=== PATIENT | male | born 1940 | race Two or more races ===

== ENCOUNTER 2017-10-08 09:58 | Inpatient (IN) | payer MEDICAID ==
[~2017-10-08] VITALS: Ht 190.5 cm; Wt 69.6 kg
[2017-10-08 10:50] LABS: Basophils # (auto) 0 uL; Basophils % (auto) 0.8 % (0.0-2.0); Eosinophils # (auto) 0.1 uL; Eosinophils % (auto) 1.7 % (0.0-7.0); Hematocrit 35.3 % (41.0-53.0); Hemoglobin 11.5 g/dL (13.5-17.5); Lymphocytes # (auto) 0.5 uL; Lymphocytes % (auto) 10.7 % (10.0-50.0); Mean Corpuscular Hgb Conc. 32.7 g/dL (32.0-36.0); Mean Corpuscular Volume 97.9 fL (80.0-100.0); Monocytes # (auto) 0.6 uL; Monocytes % (auto) 13.2 % (0.0-12.0); Neutrophils # (auto) 3.5 uL; Neutrophils % (auto) 73.6 % (37.0-80.0); Nucleated Red Blood Cells % 0.1 %; Platelet Count (auto) 145 10^3/uL (140-450); Red Cell Distribution Width 17.1 % (11.8-14.3); White Blood Cell 4.7 10^3/uL (4.4-10.8)
[2017-10-08 11:06] LABS: Calcium 9.1 mg/dL (8.5-10.1); Magnesium 2.5 mg/dL (1.6-2.6); Potassium 4.1 mmol/L (3.5-5.1)
[2017-10-08 11:08] LABS: BUN/Creatinine Ratio 7.1
[2017-10-08 11:13] LABS: Bilirubin, Total 1.6 mg/dL (0.2-1.0); Total Protein 7.5 g/dL (6.4-8.2)
[2017-10-08] MEDS ORDERED: MORPHINE SULFATE 8mg/ml INJ SDV IV PRN ×2 (11:15)
[2017-10-08] MEDS ORDERED: LEVOFLOXACIN 500MG 100 ML IV ONE (11:15)
[2017-10-08] MEDS ORDERED: NITROGLYCERIN 0.4 MG SL TAB SL PRN (11:15)
[2017-10-08] MEDS ORDERED: ALBUTEROL SULF 2.5 MG/0.5ML(0.5%) NEB SOLN NEB PRN (11:15)
[2017-10-08] MEDS ORDERED: ACETAMINOPHEN 500 MG TAB PO PRN (11:15)
[2017-10-08] MEDS ORDERED: LACTULOSE 20Gm/30ML SOLN PO PRN (11:15)
[2017-10-08] MEDS ORDERED: PROMETHAZINE HCL 25 MG/ML 1ML IV PRN (11:15)
[2017-10-08] MEDS ORDERED: TEMAZEPAM 15 MG CAP PO PRN (11:15)
[2017-10-08] MEDS: ENOXAPARIN SOD 30 MG/0.3 ML SYRINGE SC SCH (11:45)
[2017-10-08] MEDS: PANTOPRAZOLE 40 MG TAB PO SCH (11:45)
[2017-10-08] MEDS: ALBUTEROL SULF 2.5 MG/0.5ML(0.5%) NEB SOLN NEB SCH ×2 (12:30→18:55)
[2017-10-08] MEDS: IPRATROPIUM BROM 0.5 MG/2.5ML INH SOL NEB SCH ×2 (12:30→18:55)
[2017-10-08] MEDS: cefTRIAXone 1GM/10ml IVPUSH 10 ML IV SCH (15:04)
[2017-10-08] MEDS: SODIUM CHLOR 0.9% PF (SALINE LOCK) 10ML VIAL/SYR IV SCH ×2 (15:04→21:25)
[2017-10-08] MEDS: AZITHROMYCIN 500MG/ 250ML 250 ML IV SCH (15:05)
[2017-10-08] MEDS: HYDROcodone-ACET 5/325MG TAB PO PRN (19:17)
[2017-10-08] MEDS: LORazepam 0.5 MG TAB PO PRN (21:24)
[2017-10-08 22:57] VITALS: BP 101/63
[2017-10-09] MEDS: IPRATROPIUM BROM 0.5 MG/2.5ML INH SOL NEB SCH ×4 (00:55→19:27)
[2017-10-09] MEDS: ALBUTEROL SULF 2.5 MG/0.5ML(0.5%) NEB SOLN NEB SCH ×4 (00:55→19:27)
[2017-10-09 05:41] LABS: Basophils # (auto) 0 uL; Eosinophils # (auto) 0.1 uL; Eosinophils % (auto) 2.2 % (0.0-7.0); Hematocrit 31.7 % (41.0-53.0); Hemoglobin 10.8 g/dL (13.5-17.5); Lymphocytes # (auto) 0.6 uL; Mean Corpuscular Hemoglobin 32.8 pg (28.0-32.0); Mean Corpuscular Hgb Conc. 34.1 g/dL (32.0-36.0); Monocytes # (auto) 0.7 uL; Monocytes % (auto) 15.5 % (0.0-12.0); Neutrophils # (auto) 2.8 uL; Neutrophils % (auto) 67.3 % (37.0-80.0); Nucleated Red Blood Cells % 0.1 %; Platelet Count (auto) 124 10^3/uL (140-450); Red Blood Cells 3.31 10^6/uL (4.5-5.90); Red Cell Distribution Width 16.9 % (11.8-14.3); White Blood Cell 4.2 10^3/uL (4.4-10.8)
[2017-10-09 05:43] VITALS: BP 113/68
[2017-10-09] MEDS: SODIUM CHLOR 0.9% PF (SALINE LOCK) 10ML VIAL/SYR IV SCH ×3 (05:56→20:02)
[2017-10-09 06:00] LABS: Albumin 2.7 g/dL (3.4-5.0); Calcium 9.4 mg/dL (8.5-10.1); Potassium 4.2 mmol/L (3.5-5.1)
[2017-10-09 06:05] LABS: BUN/Creatinine Ratio 7.6; Bilirubin, Total 1.5 mg/dL (0.2-1.0); Total Protein 6.8 g/dL (6.4-8.2)
[2017-10-09 08:40] VITALS: BP 113/66
[2017-10-09] MEDS ORDERED: HEPARIN SODIUM (PORCINE) 5000 UNITS/ML 1ML VIAL IV ONE (09:15)
[2017-10-09] MEDS: cefTRIAXone 1GM/10ml IVPUSH 10 ML IV SCH (10:31)
[2017-10-09] MEDS: PANTOPRAZOLE 40 MG TAB PO SCH (12:46)
[2017-10-09] MEDS: ENOXAPARIN SOD 30 MG/0.3 ML SYRINGE SC SCH (12:46)
[2017-10-09] MEDS: AZITHROMYCIN 500MG/ 250ML 250 ML IV SCH (12:46)
[2017-10-09 12:57] VITALS: BP 117/70
[2017-10-09 16:47] VITALS: BP 105/63
[2017-10-09] MEDS: HYDROcodone-ACET 5/325MG TAB PO PRN (20:02)
[2017-10-09] MEDS: LORazepam 0.5 MG TAB PO PRN (20:02)
[2017-10-09 22:19] VITALS: BP 103/57
[2017-10-10] MEDS: ALBUTEROL SULF 2.5 MG/0.5ML(0.5%) NEB SOLN NEB SCH ×3 (00:20→11:07)
[2017-10-10] MEDS: IPRATROPIUM BROM 0.5 MG/2.5ML INH SOL NEB SCH ×3 (00:20→11:07)
[2017-10-10 05:33] VITALS: BP 114/63
[2017-10-10] MEDS: SODIUM CHLOR 0.9% PF (SALINE LOCK) 10ML VIAL/SYR IV SCH ×2 (06:22→14:24)
[2017-10-10] MEDS: LORazepam 0.5 MG TAB PO PRN ×2 (06:32→14:24)
[2017-10-10] MEDS: HYDROcodone-ACET 5/325MG TAB PO PRN (06:33)
[2017-10-10] MEDS: cefTRIAXone 1GM/10ml IVPUSH 10 ML IV SCH (08:31)
[2017-10-10 09:00] VITALS: BP 123/62
[2017-10-10] MEDS: PANTOPRAZOLE 40 MG TAB PO SCH (09:31)
[2017-10-10] MEDS: AZITHROMYCIN 500MG/ 250ML 250 ML IV SCH (09:31)
[2017-10-10] MEDS ORDERED: CLON1TAB3 PO (11:48)
[2017-10-10] MEDS ORDERED: ALBUAER3 IN (11:48)
[2017-10-10] MEDS ORDERED: LOSA25TA9 PO (11:48)
[2017-10-10] MEDS ORDERED: DIPH25CA66 PO (11:48)
[2017-10-10] MEDS ORDERED: FURO40TA4 PO (11:48)
[2017-10-10] MEDS ORDERED: CARV3.1240 PO (11:48)
[2017-10-10] MEDS ORDERED: ONDA4TAB5 PO (11:48)
[2017-10-10] MEDS ORDERED: HYDR-531 PO (11:48)
[2017-10-10] MEDS ORDERED: ALBU2TAB4 PO (11:48)
[2017-10-10] MEDS ORDERED: CYAN1KIT IJ (11:48)
[2017-10-10] MEDS ORDERED: PANT40TA2 PO (11:48)
[2017-10-10] MEDS ORDERED: FLUT500M2 INH (11:48)
[2017-10-10 13:00] VITALS: BP 111/75
[2017-10-10] MEDS: ENOXAPARIN SOD 30 MG/0.3 ML SYRINGE SC SCH (16:31)
[2017-10-10 17:00] VITALS: BP 113/81
== END 2017-10-10 17:30 | disposition home or self-care (01) | DRG 139 ==
LOC: ER 10:01 → TELE 10:02 → TELE-WESTW 18:42
PROVIDERS: ADMIT Internal Medicine; ATTEND Internal Medicine Pulmonary Disease
PROC: 5A1D70Z Performance of Urinary Filtration, Intermittent, Less than 6 Hours Per Day (ICD-10-PCS; principal; 2017-10-09)
DX: J18.1 Lobar pneumonia, unspecified organism (principal); I13.2 Hypertensive heart and chronic kidney disease with heart failure and with stage 5 chronic kidney disease, or end stage renal disease; N18.6 End stage renal disease; E11.22 Type 2 diabetes mellitus with diabetic chronic kidney disease; E87.8 Other disorders of electrolyte and fluid balance, not elsewhere classified; I50.22 Chronic systolic (congestive) heart failure; D63.8 Anemia in other chronic diseases classified elsewhere; E78.5 Hyperlipidemia, unspecified; Z99.2 Dependence on renal dialysis
CPT/HCPCS: 36415; 71046; 80053; 82550; 83605; 83735; 83880; 84443; 84484; 85025; 87040; 87081; 90935; 93005; 93306; 94640; 94761; 96365; 96375

== ENCOUNTER 2018-08-26 21:38 | Inpatient (IN) | payer MEDICARE, MEDICAID | END 2018-09-03 19:10 | disposition home or self-care (01) | LOC: ER 21:38 → TELE 08-27 05:15 → TELE-CENTR 08-27 06:38 | PROC: 0TBC8ZX Excision of Bladder Neck, Via Natural or Artificial Opening Endoscopic, Diagnostic (ICD-10-PCS; principal; 2018-08-30 15:02) | DX: N40.1 Benign prostatic hyperplasia with lower urinary tract symptoms (principal); N18.6 End stage renal disease; I50.43 Acute on chronic combined systolic (congestive) and diastolic (congestive) heart failure; I13.2 Hypertensive heart and chronic kidney disease with heart failure and with stage 5 chronic kidney disease, or end stage renal disease; N35.911 Unspecified urethral stricture, male, meatal; R31.0 Gross hematuria; D63.8 Anemia in other chronic diseases classified elsewhere; Z99.2 Dependence on renal dialysis; K74.60 Unspecified cirrhosis of liver; I27.20 Pulmonary hypertension, unspecified; E11.22 Type 2 diabetes mellitus with diabetic chronic kidney disease ==

== ENCOUNTER 2018-10-13 16:07 | Inpatient (IN) | payer MEDICARE, MEDICAID | END 2018-10-15 19:11 | disposition home or self-care (01) | LOC: ER 16:07 → TELE 21:34 → TELE-EAST 23:13 | DX: I50.43 Acute on chronic combined systolic (congestive) and diastolic (congestive) heart failure (principal); N18.6 End stage renal disease; I13.2 Hypertensive heart and chronic kidney disease with heart failure and with stage 5 chronic kidney disease, or end stage renal disease; J44.0 Chronic obstructive pulmonary disease with (acute) lower respiratory infection; E11.65 Type 2 diabetes mellitus with hyperglycemia; R74.8 Abnormal levels of other serum enzymes; D63.8 Anemia in other chronic diseases classified elsewhere; N40.0 Benign prostatic hyperplasia without lower urinary tract symptoms ==

== ENCOUNTER 2019-11-29 08:53 | Inpatient (IN) | payer MEDICARE, MEDICAID ==
[~2019-11-29] VITALS: Ht 160 cm; Wt 67.2 kg
[~2019-11-29 08:53] MED LIST: ALBU2TAB4 PO; ALBUAER3 IN; CARV3.1240 PO; CLON1TAB10 PO; CYAN1KIT IJ; DIPH25CA66 PO; FLUT500M2 INH; FURO40TA4 PO; HYDR-531 PO; LOSA25TA38 PO; ONDA-144 PO; PANT40TA2 PO
[2019-11-29 09:54] LABS: Hematocrit 31.8 % (41.0-53.0); Hemoglobin 10.4 g/dL (13.5-17.5); Mean Corpuscular Hemoglobin 30.5 pg (28.0-32.0); Mean Corpuscular Hgb Conc. 32.9 g/dL (32.0-36.0); Mean Corpuscular Volume 92.9 fL (80.0-100.0); Platelet Count (auto) 213 10^3/uL (140-450); Red Blood Cells 3.42 10^6/uL (4.5-5.90); Red Cell Distribution Width 14.8 % (11.8-14.3); White Blood Cell 2.5 10^3/uL (4.4-10.8)
[2019-11-29 10:00] LABS: Band Neutrophils % (manual) 0; Basophils % (manual) 0 (0.0-2.0); Blast Cells 0; Metamyelocytes % 0; Myelocytes % 0; Promyelocytes % 0; Reactive Lymphocytes 0
[2019-11-29 10:15] LABS: Albumin 2.9 g/dL (3.4-5.0); Anion Gap 7 (5-15); Blood Urea Nitrogen 48 mg/dL (7-18); Calcium 9.4 mg/dL (8.5-10.1); Carbon Dioxide 33 mmol/L (21-32); Chloride 90 mmol/L (98-107); Potassium 3.7 mmol/L (3.5-5.1); Sodium 130 mmol/L (136-145)
[2019-11-29 10:22] LABS: Alanine Aminotransferase 32 U/L (16-61); Alkaline Phosphatase 540 U/L (45-117); Aspartate Aminotransferase 35 U/L (15-37); Bilirubin, Total 0.7 mg/dL (0.2-1.0); GFR African American 15 mL/min; GFR Non-African American 12 mL/min; Glucose 126 mg/dL (74-106); Total Protein 7.7 g/dL (6.4-8.2)
[2019-11-29 10:23] LABS: INR 1.18 (0.9-1.15); Partial Thromboplastin Time 36.3 sec (23.64-32.05)
[2019-11-29 10:26] LABS: BUN/Creatinine Ratio 9.7
[2019-11-29 10:27] LABS: Eosinophils % (manual) 4 (0-7); Lymphocytes % (manual) 14 (10.0-50.0); Monocytes % (manual) 19 (0-12)
[2019-11-29] MEDS ORDERED: ACETAMINOPHEN 325 MG TAB PO PRN ×2 (12:15)
[2019-11-29] MEDS ORDERED: LORazepam 0.5 MG TAB PO PRN ×2 (12:15)
[2019-11-29] MEDS ORDERED: ALUM & MAG HYDROX-SIMETH LIQ(MAALOX) 30 ML PO PRN (12:15)
[2019-11-29] MEDS ORDERED: HYDROcodone-ACET 5/325MG TAB PO PRN (12:15)
[2019-11-29] MEDS ORDERED: DOCUSATE SOD 100 MG CAP PO PRN (12:15)
[2019-11-29] MEDS ORDERED: diphenhdrAMINE HCL 25 MG CAP PO PRN (12:15)
[2019-11-29] MEDS ORDERED: NITROGLYCERIN 0.4 MG SL TAB SL PRN ×3 (12:15)
[2019-11-29] MEDS ORDERED: MORPHINE SULF INJ 2 MG/ML SYRINGE 1ML IV PRN ×3 (12:15)
[2019-11-29] MEDS ORDERED: ONDANSETRON HCL 4 MG/2 ML VIAL IV PRN (12:15)
[2019-11-29] MEDS ORDERED: ALUM & MAG HYDROX-SIMETH LIQ(MAALOX) 30 ML PO ONE (12:15)
[2019-11-29] MEDS ORDERED: FUROSEMIDE 40 MG/4 ML VIAL IV ONE (12:30)
[2019-11-29] MEDS ORDERED: CLON0.5T3 PO (13:26)
[2019-11-29] MEDS ORDERED: ALBU0.084 NEB (13:26)
[2019-11-29] MEDS ORDERED: OMEP-263 PO (13:26)
[2019-11-29] MEDS ORDERED: FURO80TA3 PO (13:26)
[2019-11-29] MEDS ORDERED: HYDR-3682 PO (13:27)
--- NOTE | 2019-11-29 13:44 | NUR ---
Report Received report from ON SITE MANAGER, Berkley.
--- NOTE | 2019-11-29 13:54 | NUR ---
Patient Arrived Patient arrived to unit from ER. Patient currently shows no signs of distress, respirations even and unlabored, denies pain at this time. VS as follows: HR 65, 97%RA, RR18, BP 115/57. AOx4, irish speaking only. Safety precautions in place, will continue to monitor.
[2019-11-29 15:14] VITALS: BP 115/57
[2019-11-29] MEDS ORDERED: VANCOMYCIN PER PHARMACY 0 MG IV SCH (15:45)
[2019-11-29] MEDS ORDERED: IPRATROPIUM BROM 0.5 MG/2.5ML INH SOL NEB PRN (15:45)
[2019-11-29] MEDS ORDERED: VANCOMYCIN 1GM/250ML 250 ML IV ONE (16:45)
--- NOTE | 2019-11-29 16:55 | NUR ---
Spoke with MD Spoke with Dr. Landeros regarding patient sliding scale for history of DM, new orders received.
[2019-11-29 17:00] VITALS: BP 107/55
[2019-11-29] MEDS ORDERED: DEXTROSE (50%) 50ML SYRG IV PRN (17:00)
[2019-11-29] MEDS: SODIUM CHLORIDE 0.9% 1,000 ML IV SCH (17:55)
[2019-11-29] MEDS: ACCU-CHEK COMFORT CURVE STRIP VI SCH ×2 (18:22→21:29)
[2019-11-29] MEDS: InsuLIN REG 1unit/0.01ml Soln (100units/ml) SC SCH ×2 (18:22→21:28)
[2019-11-29] MEDS: ONDANSETRON HCL 4 MG/2 ML VIAL IV PRN (18:24)
--- NOTE | 2019-11-29 19:13 | NUR ---
at Bedside Dr. Herring at bedside discussing patient status and plan of care.
--- NOTE | 2019-11-29 20:00 | NUR ---
Opening Shift Note Assumed care of patient, awake and alert. No S/S of distress/SOB or pain. Instructed on POC and to call for assist PRN, will continue to monitor for changes Q1hr and PRN.
--- NOTE | 2019-11-29 21:00 | NUR ---
Respiratory note: PT ASSESSED FOR PRN MED NEB TX AT THIS TIME. PT ON ROOM AIR SP02 92%, HR 65, RR 14 .B/S ARE CLEAR. PT IN NO DISTRESS AT THIS TIME. ADVISED PT TO CALL IF TX IS NEEDED.
[2019-11-29] MEDS: METOPROLOL TARTRATE 25 MG TAB PO SCH (21:28)
[2019-11-29 22:00] VITALS: BP 150/53
[2019-11-29] MEDS ORDERED: ATORVASTATIN 20 MG TAB PO SCH (22:00)
[2019-11-29] MEDS ORDERED: PIPERACILLIN-TAZOB 2.25GM 50 ML IV SCH (22:00)
[2019-11-30 03:51] VITALS: BP 150/53
[2019-11-30 04:22] LABS: Alcohol, Urine < 3.0 mg/dL (0-10); Amphetamine Screen, Urine NEGATIVE (NEGATIVE); Barbiturate Scree,Urine NEGATIVE (NEGATIVE); Benzodiazephine Screen, Urine NEGATIVE (NEGATIVE); Cannabinoid Screen, Urine NEGATIVE (NEGATIVE); Cocaine Screen, Urine NEGATIVE (NEGATIVE); Opiate Scree,Urine NEGATIVE (NEGATIVE); Phencyclidine Screen, Urine NEGATIVE (NEGATIVE)
[2019-11-30 04:25] LABS: Urine Bacteria FEW /hpf (None Seen); Urine Blood Negative /uL (Negative); Urine Mucus FEW (None Seen); Urine Specific Gravity 1.009 (1.001-1.035); Urine WBC 3 /hpf (0 - 3)
[2019-11-30 05:00] VITALS: BP 111/49
[2019-11-30] MEDS: InsuLIN REG 1unit/0.01ml Soln (100units/ml) SC SCH ×2 (06:06→12:01)
[2019-11-30] MEDS: ACCU-CHEK COMFORT CURVE STRIP VI SCH ×2 (06:07→12:01)
[2019-11-30 06:59] LABS: Basophils # (auto) 0 10 ^3/uL (0-0.2); Basophils % (auto) 1.5 % (0.0-2.0); Eosinophils # (auto) 0.2 10 ^3/uL (0-0.8); Eosinophils % (auto) 7.6 % (0.0-7.0); Hematocrit 29.3 % (41.0-53.0); Hemoglobin 9.7 g/dL (13.5-17.5); Lymphocytes # (auto) 0.5 10 ^3/uL (0.4-5.4); Lymphocytes % (auto) 15.7 % (10.0-50.0); Mean Corpuscular Hemoglobin 30.7 pg (28.0-32.0); Mean Corpuscular Hgb Conc. 33.2 g/dL (32.0-36.0); Mean Corpuscular Volume 92.6 fL (80.0-100.0); Monocytes # (auto) 0.5 10 ^3/uL (0-1.3); Neutrophils # (auto) 1.9 10 ^3/uL (1.6-8.6); Neutrophils % (auto) 58.2 % (37.0-80.0); Nucleated Red Blood Cells % 0.3 %; Platelet Count (auto) 220 10^3/uL (140-450); Red Blood Cells 3.16 10^6/uL (4.5-5.90); Red Cell Distribution Width 14.7 % (11.8-14.3); White Blood Cell 3.2 10^3/uL (4.4-10.8)
[2019-11-30 07:17] LABS: Chloride 90 mmol/L (98-107); Potassium 4.1 mmol/L (3.5-5.1); Sodium 129 mmol/L (136-145)
--- NOTE | 2019-11-30 07:34 | NUR ---
Care report given to Neville Oro, patient is resting no distress.
[2019-11-30 07:40] LABS: Alanine Aminotransferase 27 U/L (16-61); Albumin 2.7 g/dL (3.4-5.0); Alkaline Phosphatase 486 U/L (45-117); Anion Gap 9 (5-15); Aspartate Aminotransferase 30 U/L (15-37); BUN/Creatinine Ratio 9.7; Bilirubin, Total 0.8 mg/dL (0.2-1.0); Blood Urea Nitrogen 58 mg/dL (7-18); Calcium 8.8 mg/dL (8.5-10.1); Carbon Dioxide 30 mmol/L (21-32); Creatine Kinase IFCC 40 U/L (39-308); GFR African American 12 mL/min; GFR Non-African American 10 mL/min; Glucose 80 mg/dL (74-106); Magnesium 2.9 mg/dL (1.6-2.6); Phosphorus 5.2 mg/dL (2.5-4.90); Total Protein 7.1 g/dL (6.4-8.2)
[2019-11-30 08:29] LABS: INR 1.22 (0.9-1.15)
--- NOTE | 2019-11-30 08:45 | NUR ---
DR WILLIAM AT BEDSIDE. PER MD, NO FISTULOGRAM TO BE DONE TODAY. DIALYSIS IS ALSO CANCELLED. MD WANTS PT TO DISCHARGE HOME TODAY. AND WILL DO DIALYSIS OUTPATIENT. RADIOLOGY MADE AWARE.
[2019-11-30 08:48] VITALS: BP 107/57
[2019-11-30] MEDS: METOPROLOL TARTRATE 25 MG TAB PO SCH (09:51)
[2019-11-30] MEDS ORDERED: LISINOPRIL 10 MG TAB PO SCH (10:00)
[2019-11-30] MEDS ORDERED: PANTOPRAZOLE 40 MG TAB PO SCH (10:00)
[2019-11-30] MEDS ORDERED: DOCUSATE SOD 100 MG CAP PO SCH (10:00)
[2019-11-30] MEDS ORDERED: CARVEDILOL 3.125 MG TAB PO SCH (10:00)
[2019-11-30] MEDS ORDERED: LOSARTAN POTASSIUM 25 MG TAB PO SCH (10:00)
[2019-11-30] MEDS ORDERED: ASPirin 81 mg TAB PO SCH (10:00)
--- NOTE | 2019-11-30 10:34 | NUR ---
RT NOTE: NO TX INDICATED AT THIS TIME. NO SIGNS OF RESPIRATORY DISTRESS NOTED. ON RA SPO2 95 HR 64 RR 16. PT AWARE TO PAGE FOR RESPIRATORY IF NEED FOR TX ARISES. WILL CONTINUE TO MONITOR.
[2019-11-30] MEDS: ONDANSETRON HCL 4 MG/2 ML VIAL IV PRN (12:01)
[2019-11-30] MEDS: SODIUM CHLORIDE 0.9% 1,000 ML IV SCH (12:13)
[2019-11-30 12:37] VITALS: BP 123/84
[2019-11-30 13:19] VITALS: BP 123/84
--- NOTE | 2019-11-30 13:25 | NUR ---
FAMILY INFORMED OF PT'S DISCHARGE ORDER TODAY SPOKE TO NIECE, SERGIO.
--- NOTE | 2019-11-30 15:02 | NUR ---
DISCHARGE NOTES WELFARE INTERVIEWER AT BEDSIDE. Discharge instructions given as ordered. Encourage to follow up with PMD as instructed. All questions and concerns addressed. Patient verbalized understanding. Medication reconciliation form completed and copy given to patient. IV removed with catheter intact, pressure dressing applied. Telemetry unit returned to ICU. I SPOKE TO PT'S NIECE, SERGIO, REGARDING DISCHARGE INSTRUCTION, AND FOLLOW UP INFORMATION. SERGIO WILL CALL THE DIALYSIS CENTER TO FIND OUT THE PATIENT'S CHAIR TIME TOMORROW WRITTEN ON DR WILLIAM'S NOTE.
[2019-11-30 16:39] VITALS: BP_SYST 114; BP_SYST 151; BP_DIAS 50; BP_DIAS 76
--- NOTE | 2019-11-30 16:48 | NUR ---
WAITING FOR REIKI PRACTITIONER. CALLED SERGIO. NO ANSWER.
--- NOTE | 2019-11-30 17:10 | NUR ---
Patient taken to vehicle via wheelchair with all personal belongings, accompanied by staff and family member. No distress noted at time of departure.
== END 2019-11-30 17:10 | disposition home health service (06) | DRG 314 ==
LOC: EDBD 08:53 → ER 08:53 → EDUNIT# 08:53 → TELE 08:54 → TELE-WESTW 13:55
PROVIDERS: ADMIT Hospitalist; ATTEND Family Medicine
DX: T82.838A Hemorrhage due to vascular prosthetic devices, implants and grafts, initial encounter (principal); N18.6 End stage renal disease; I50.23 Acute on chronic systolic (congestive) heart failure; J18.9 Pneumonia, unspecified organism; E43 Unspecified severe protein-calorie malnutrition; J81.0 Acute pulmonary edema; E87.1 Hypo-osmolality and hyponatremia; D68.9 Coagulation defect, unspecified; I13.2 Hypertensive heart and chronic kidney disease with heart failure and with stage 5 chronic kidney disease, or end stage renal disease; J44.0 Chronic obstructive pulmonary disease with (acute) lower respiratory infection; Z99.2 Dependence on renal dialysis; N40.0 Benign prostatic hyperplasia without lower urinary tract symptoms; J44.9 Chronic obstructive pulmonary disease, unspecified; D72.819 Decreased white blood cell count, unspecified; D63.1 Anemia in chronic kidney disease; R79.89 Other specified abnormal findings of blood chemistry; K76.0 Fatty (change of) liver, not elsewhere classified; D50.9 Iron deficiency anemia, unspecified; D53.9 Nutritional anemia, unspecified; E11.22 Type 2 diabetes mellitus with diabetic chronic kidney disease; E11.65 Type 2 diabetes mellitus with hyperglycemia; E78.00 Pure hypercholesterolemia, unspecified; F17.200 Nicotine dependence, unspecified, uncomplicated; F32.9 Major depressive disorder, single episode, unspecified; G89.29 Other chronic pain; Y71.2 Prosthetic and other implants, materials and accessory cardiovascular devices associated with adverse incidents; Z79.51 Long term (current) use of inhaled steroids; I50.82 Biventricular heart failure; Z79.899 Other long term (current) drug therapy; Z90.79 Acquired absence of other genital organ(s)
CPT/HCPCS: 36415; 71045; 76881; 80053; 80202; 80307; 81001; 82550; 82962; 83036; 83735; 83880; 84100; 84443; 84484; 85007; 85025; 85027; 85610; 85730; 87040; 87086; 93306; 96365; 96367; 96375; 99291; G0378; J2405; J2543

== ENCOUNTER 2019-12-04 00:42 | Inpatient (IN) | payer MEDICARE, MEDICAID ==
[~2019-12-04] VITALS: Ht 165.1 cm; Wt 67.1 kg
[~2019-12-04 00:42] MED LIST changes: +ALBU0.084 NEB; -ALBU2TAB4 PO; +CLON0.5T3 PO; -CLON1TAB10 PO; -DIPH25CA66 PO; -FURO40TA4 PO; +FURO80TA3 PO; +HYDR-3682 PO; +OMEP-263 PO; -PANT40TA2 PO
[2019-12-04 03:58] LABS: Basophils # (auto) 0 10 ^3/uL (0-0.2); Basophils % (auto) 1.4 % (0.0-2.0); Eosinophils # (auto) 0.2 10 ^3/uL (0-0.8); Eosinophils % (auto) 5.5 % (0.0-7.0); Hematocrit 30.8 % (41.0-53.0); Hemoglobin 10.1 g/dL (13.5-17.5); Lymphocytes # (auto) 0.5 10 ^3/uL (0.4-5.4); Mean Corpuscular Hgb Conc. 32.8 g/dL (32.0-36.0); Mean Corpuscular Volume 94.5 fL (80.0-100.0); Monocytes # (auto) 0.5 10 ^3/uL (0-1.3); Monocytes % (auto) 14.4 % (0.0-12.0); Neutrophils # (auto) 2.3 10 ^3/uL (1.6-8.6); Neutrophils % (auto) 64.7 % (37.0-80.0); Nucleated Red Blood Cells % 0.1 %; Platelet Count (auto) 204 10^3/uL (140-450); Red Blood Cells 3.26 10^6/uL (4.5-5.90); White Blood Cell 3.5 10^3/uL (4.4-10.8)
[2019-12-04 04:18] LABS: Alanine Aminotransferase 23 U/L (16-61); Anion Gap 12 (5-15); Aspartate Aminotransferase 30 U/L (15-37); Blood Urea Nitrogen 47 mg/dL (7-18); Calcium 8.9 mg/dL (8.5-10.1); Carbon Dioxide 29 mmol/L (21-32); Chloride 85 mmol/L (98-107); GFR African American 10 mL/min; GFR Non-African American 9 mL/min; Glucose 91 mg/dL (74-106); Potassium 4.2 mmol/L (3.5-5.1); Sodium 126 mmol/L (136-145)
[2019-12-04 04:22] LABS: Alkaline Phosphatase 472 U/L (45-117); Bilirubin, Total 0.9 mg/dL (0.2-1.0); Total Protein 7.6 g/dL (6.4-8.2)
[2019-12-04] MEDS ORDERED: DEXTROSE (50%) 50ML SYRG IV PRN (06:15)
[2019-12-04] MEDS ORDERED: ONDANSETRON HCL 4 MG/2 ML VIAL IV PRN (06:15)
[2019-12-04] MEDS ORDERED: DOCUSATE SOD 100 MG CAP PO PRN (06:15)
[2019-12-04] MEDS ORDERED: MORPHINE SULF INJ 2 MG/ML SYRINGE 1ML IV PRN (06:15)
[2019-12-04] MEDS ORDERED: HYDROcodone-ACET 5/325MG TAB PO PRN (06:15)
[2019-12-04] MEDS ORDERED: ACETAMINOPHEN 325 MG TAB PO PRN (06:15)
[2019-12-04 07:00] LABS: Cholesterol 123 mg/dL (< 200); HDL Cholesterol 57 mg/dL (40-59); LDL Cholesterol 51 mg/dL (< 100); Triglycerides 55 mg/dL (< 150)
[2019-12-04] MEDS: SODIUM CHLORIDE 0.9% 1,000 ML IV SCH ×2 (08:10→22:44)
--- NOTE | 2019-12-04 11:11 | NUR ---
MS admit from ER [facility] admitted to tele/MS after SBAR received. Patient oriented to JOHAN LEGER, RN primary RN, TELE unit, room 289, bed A, and unit policies regarding patient care and visiting hours. Patient weighed by bedscale and encouraged to call if they need something. All questions and concerns addressed, patient verbalized understanding.
--- NOTE | 2019-12-04 11:15 | NUR ---
3 ATTEMPTS MADE TO REACH FAMILY CONTACT SERGIO PROVIDED BY PATIENT. THIS RN ATTEMPTING TO FIND OUT WHAT INFORMATION SYSTEMS SUPERVISOR PATIENT SEES, PATIENT UNABLE TO RECAL NAME.
[2019-12-04 11:37] VITALS: BP 120/61
--- NOTE | 2019-12-04 11:58 | NUR ---
COVID AND MRSA SWAB SENT TO LAB
[2019-12-04] MEDS: ACCU-CHEK COMFORT CURVE STRIP VI SCH ×2 (12:00→17:28)
[2019-12-04] MEDS: InsuLIN REG 1unit/0.01ml Soln (100units/ml) SC SCH ×2 (12:00→17:28)
--- NOTE | 2019-12-04 12:05 | NUR ---
MD VAN ESCOBAR
--- NOTE | 2019-12-04 12:37 | NUR ---
PAGE MADE TO MD. VALENCIA.
[2019-12-04 12:39] VITALS: BP 120/61
--- NOTE | 2019-12-04 12:57 | NUR ---
PAGE MADE TO DR. WILLIAM
--- NOTE | 2019-12-04 14:58 | NUR ---
MD SUE ESCOBAR.
[2019-12-04 16:58] VITALS: BP 115/53
--- NOTE | 2019-12-04 19:13 | NUR ---
CARE ENDORSED TO NOC RN.
--- NOTE | 2019-12-04 19:40 | NUR ---
Opening Shift Note Assumed care of patient, awake, AAOx3, reoriented to time. No S/S of distress/SOB or pain. On room air and ambulatory to BSC. Bed in lowest locked position, side rails up x2, call light within reach. Instructed on POC and to call for assist PRN, will continue to monitor for changes Q1hr and PRN.
[2019-12-04 22:00] VITALS: BP 112/51
[2019-12-05 05:46] VITALS: BP 119/65
[2019-12-05] MEDS: InsuLIN REG 1unit/0.01ml Soln (100units/ml) SC SCH ×4 (05:53→18:00)
[2019-12-05] MEDS: ACCU-CHEK COMFORT CURVE STRIP VI SCH ×4 (05:53→18:45)
[2019-12-05 06:51] LABS: % Iron Saturation 17.8 % (20-55)
[2019-12-05] MEDS ORDERED: SODIUM CHL 0.9% 1000 ML BAG XX ONE (07:00)
[2019-12-05 08:00] VITALS: BP 118/61
--- NOTE | 2019-12-05 08:00 | NUR ---
Opening Shift Note Assumed care of patient, awake and alert. No S/S of distress/SOB or pain. Instructed on POC and to call for assist PRN, will continue to monitor for changes Q1hr and PRN. Bed at lowest locked position.
[2019-12-05 08:23] VITALS: BP 118/61
[2019-12-05 13:00] VITALS: BP 112/48
[2019-12-05] MEDS: SODIUM CHLORIDE 0.9% 1,000 ML IV SCH ×2 (15:24→20:49)
[2019-12-05 17:00] VITALS: BP 147/53
--- NOTE | 2019-12-05 19:30 | NUR ---
Opening Shift Note Assumed care of patient, awake and alert. No S/S of distress/SOB or pain. Instructed on POC and to call for assist PRN, will continue to monitor for changes Q1hr and PRN. Addendum: 12/07/19 at 0426 by Sherlyn Mix RN wrong date
--- NOTE | 2019-12-05 19:35 | NUR ---
Opening Shift Note Assumed care of patient, awake and alert. No S/S of distress/SOB or pain. Instructed on POC and to call for assist PRN, will continue to monitor for changes Q1hr and PRN.
--- NOTE | 2019-12-05 19:50 | NUR ---
care endorsed to NOC RN.
[2019-12-05 22:00] VITALS: BP 120/62
[2019-12-06] VITALS (7 sets, daily range): BP systolic 100–121; BP diastolic 49–67
[2019-12-06] MEDS: InsuLIN REG 1unit/0.01ml Soln (100units/ml) SC SCH ×5 (06:00→23:57)
[2019-12-06] MEDS: ACCU-CHEK COMFORT CURVE STRIP VI SCH ×5 (06:23→23:58)
--- NOTE | 2019-12-06 09:45 | NUR ---
Pain Patient c/o back pain and bilateral lower leg pain, rates it 11/24. Will medicate per MD orders. Will continue to monitor.
--- NOTE | 2019-12-06 13:44 | NUR ---
Called Family member for an update at [phone]. No answer. Will attempt later.
[2019-12-06] MEDS ORDERED: SODIUM CHL 0.9% 1000 ML BAG XX ONE (16:15)
--- NOTE | 2019-12-06 17:00 | NUR ---
Dr. Guzman from nephrology at bedside.
--- NOTE | 2019-12-06 19:41 | NUR ---
closing shift Patient is comfortably sitting up in bed, having dinner, no s/s of distress/sob noted/stated. Bed at lowest lo0ked position and call light within reach. Endorsed care to NOC RN.
[2019-12-06] MEDS: SACUBITRIL-VALSARTAN 24mg/26mg TAB PO SCH (23:00)
[2019-12-06] MEDS: SODIUM CHLORIDE 0.9% 1,000 ML IV SCH (23:00)
[2019-12-06] MEDS: CARVEDILOL 3.125 MG TAB PO SCH (23:01)
[2019-12-07 05:00] VITALS: BP 104/93
[2019-12-07 05:24] LABS: INR 1.31 (0.9-1.15); Partial Thromboplastin Time 36.3 sec (23.64-32.05)
[2019-12-07 05:25] LABS: Basophils # (auto) 0.1 10 ^3/uL (0-0.2); Basophils % (auto) 2.6 % (0.0-2.0); Eosinophils # (auto) 0.2 10 ^3/uL (0-0.8); Eosinophils % (auto) 5.6 % (0.0-7.0); Hematocrit 32.7 % (41.0-53.0); Hemoglobin 10.9 g/dL (13.5-17.5); Lymphocytes # (auto) 0.5 10 ^3/uL (0.4-5.4); Lymphocytes % (auto) 15.8 % (10.0-50.0); Mean Corpuscular Hemoglobin 31.2 pg (28.0-32.0); Mean Corpuscular Hgb Conc. 33.4 g/dL (32.0-36.0); Mean Corpuscular Volume 93.6 fL (80.0-100.0); Monocytes # (auto) 0.5 10 ^3/uL (0-1.3); Monocytes % (auto) 17.1 % (0.0-12.0); Neutrophils # (auto) 1.7 10 ^3/uL (1.6-8.6); Neutrophils % (auto) 58.9 % (37.0-80.0); Platelet Count (auto) 210 10^3/uL (140-450); Red Cell Distribution Width 14.5 % (11.8-14.3)
[2019-12-07 05:28] LABS: BUN/Creatinine Ratio 6.4; Calcium 8.7 mg/dL (8.5-10.1); Potassium 4.5 mmol/L (3.5-5.1)
[2019-12-07] MEDS: InsuLIN REG 1unit/0.01ml Soln (100units/ml) SC SCH ×3 (05:59→18:00)
[2019-12-07] MEDS: ACCU-CHEK COMFORT CURVE STRIP VI SCH ×3 (05:59→18:30)
--- NOTE | 2019-12-07 07:30 | NUR ---
Opening Shift Note Assumed patient care from NOC RN. Patient currently laying supine with eyes closed, respirations even and unlabored. No signs of distress at this time. Safety precautions in place, call light within reach, will continue to monitor.
[2019-12-07 08:03] LABS: Urine Bacteria NONE SEEN /hpf (None Seen); Urine Blood Negative /uL (Negative); Urine Specific Gravity 1.008 (1.001-1.035); Urine WBC 2 /hpf (0 - 3)
--- NOTE | 2019-12-07 08:43 | NUR ---
Off Unit Patient off unit to bobcat driver/labor. No signs of distress at this time.
[2019-12-07] MEDS ORDERED: LIDOCAINE 2%HCL (LOCAL ANESTH.) INJ 20ML MDV ONE (09:34)
[2019-12-07] MEDS ORDERED: HEPARIN IN NS 1000Units/500mL 1,500 ML ONE (09:34)
[2019-12-07] MEDS ORDERED: IODIXANOL 320MG/ML 100ML BTL IV ONE (09:34)
[2019-12-07] MEDS: CARVEDILOL 3.125 MG TAB PO SCH ×2 (10:00→22:07)
[2019-12-07] MEDS: SACUBITRIL-VALSARTAN 24mg/26mg TAB PO SCH ×2 (10:00→22:06)
[2019-12-07] MEDS ORDERED: ANGIOMAX 250 MG VIAL IV ONE (10:01)
[2019-12-07] MEDS ORDERED: fentaNYL CITRATE 100 MCG/2 ML VL ONE (10:01)
[2019-12-07] MEDS ORDERED: MIDAZOLAM HCL 1MG/1ML-2 ML VIAL ONE (10:02)
[2019-12-07] MEDS ORDERED: SODIUM CHL 0.9% 0 ML ONE (10:02)
--- NOTE | 2019-12-07 12:13 | NUR ---
Patient Returned Patient returned to unit from [employer]. No signs of distress at this time. Patient is AOx4, respirations even and unlabored on 2L PRN. Safety precautions in place, call light within reach, patient encouraged to call as needed. Patient is aware of need to lay supine for approximately another hour, discussed risks and benefits, patient verbalized understanding and agrees to plan of care, will continue to monitor.
[2019-12-07 13:00] VITALS: BP 110/48
--- NOTE | 2019-12-07 13:00 | NUR ---
Dialysis ear specialist at bedside. Patient sitting up for lunch at this time. No signs of distress noted. Safety precautions in place, call light within reach. Will continue to monitor.
--- NOTE | 2019-12-07 15:13 | NUR ---
Nutrition Assessment Notes please see attached link for complete assessment Est energy needs BW 67 [id number] kcal (30-33kcal/kg BW) Est protein needs 80-94g (1.2-1.4 g/kg BW HD) Will reassess prn. Addendum: 12/07/19 at [address] Amended: Links added.
[2019-12-07 17:00] VITALS: BP 124/48
--- NOTE | 2019-12-07 17:13 | NUR ---
Dialysis Dialysis complete: 2L removed Bp 127/51 HR 65. Patient shows no signs of distress at this time. Dressing to be removed at 2000 tonight.
[2019-12-07] MEDS: SODIUM CHLORIDE 0.9% 1,000 ML IV SCH ×2 (17:24→22:05)
[2019-12-07 22:00] VITALS: BP 113/55
[2019-12-08] MEDS: ACCU-CHEK COMFORT CURVE STRIP VI SCH ×3 (01:46→12:16)
[2019-12-08 05:00] VITALS: BP 114/56
[2019-12-08] MEDS: InsuLIN REG 1unit/0.01ml Soln (100units/ml) SC SCH ×3 (05:50→12:00)
--- NOTE | 2019-12-08 07:30 | NUR ---
Opening Shift Note Assumed patient care from NOC RNSherlyn. Patient currently sitting up in bed stating he has 6/10 pain: back ache and at incision site. Incision site is clean, dry, intact, no evidence of hematoma or bleeding at this time. Patient also states he has a mild sore throat. Respirations even and unlabored. Safety precautions in place, call light within reach, will continue to monitor.
[2019-12-08 09:00] VITALS: BP 109/58
[2019-12-08] MEDS: CARVEDILOL 3.125 MG TAB PO SCH (09:20)
[2019-12-08] MEDS: SACUBITRIL-VALSARTAN 24mg/26mg TAB PO SCH (09:20)
--- NOTE | 2019-12-08 11:00 | NUR ---
Spoke with Dr. Arthur regarding patient's plan of care. Per , will schedule patient for pulmonary hypertension clinic and mitral valve clip as outpatient.
--- NOTE | 2019-12-08 11:19 | NUR ---
at Bedside Dr. Davison at bedside discussing plan of care with patient. Per MD, patient will be discharged today.
[2019-12-08 12:27] VITALS: BP_SYST 109; BP_SYST 114; BP_DIAS 58; BP_DIAS 60
[2019-12-08 12:53] VITALS: BP 114/60
--- NOTE | 2019-12-08 13:21 | NUR ---
Family Called Attempted to call family regarding patient discharge. No answer at this time. Will call back.
--- NOTE | 2019-12-08 14:36 | NUR ---
Called Family Called Family member regarding discharge.
--- NOTE | 2019-12-08 14:49 | NUR ---
Called PCP office for Appointment Spoke with regarding follow up appointment.
--- NOTE | 2019-12-08 15:00 | NUR ---
Called Family Attempted to call family again regarding patient discharge. Addendum: 12/08/19 at 1500 by SOHAN VELOZ RN RN No answer at this time.
--- NOTE | 2019-12-08 15:15 | NUR ---
Family Aware Contacted nieceJojo at [phone]. Family aware that patient is discharged, per Jojo, will seating upholsterer patient in 20 minutes.
--- NOTE | 2019-12-08 15:34 | NUR ---
Closing Note Endorsed care/discharge to Sandra CUEVAS. Patient is AOx4, no signs of distress, respirations even and unlabored. Safety precautions in place. Patient awaiting for niece for fish bait picker.
--- NOTE | 2019-12-08 15:55 | NUR ---
Discharge instructions given as ordered. Encourage to follow up with PMD as instructed. All questions and concerns addressed. Patient verbalized understanding. Medication reconciliation form completed and copy given to patient. IV removed with catheter intact, pressure dressing applied. Telemetry unit returned to ICU. Patient taken to vehicle via wheelchair with all personal belongings, accompanied by staff and family member. No distress noted at time of departure. Patient discharged and note entered for FAITH Ramirez.
[2019-12-08 17:00] VITALS: BP 134/60
== END 2019-12-08 15:55 | disposition home or self-care (01) | DRG 286 ==
LOC: EDBD 00:42 → ER 00:44 → TELE 00:45 → TELE-WESTW 11:13
PROVIDERS: ADMIT Hospitalist; ATTEND Family Medicine
PROC: 4A023N8 Measurement of Cardiac Sampling and Pressure, Bilateral, Percutaneous Approach (ICD-10-PCS; principal; 2019-12-07)
PROC: B2111ZZ Fluoroscopy of Multiple Coronary Arteries using Low Osmolar Contrast (ICD-10-PCS; 2019-12-07)
PROC: B2151ZZ Fluoroscopy of Left Heart using Low Osmolar Contrast (ICD-10-PCS; 2019-12-07)
PROC: 5A1D70Z Performance of Urinary Filtration, Intermittent, Less than 6 Hours Per Day (ICD-10-PCS; 2019-12-07)
DX: I13.2 Hypertensive heart and chronic kidney disease with heart failure and with stage 5 chronic kidney disease, or end stage renal disease (principal); I50.43 Acute on chronic combined systolic (congestive) and diastolic (congestive) heart failure; N18.6 End stage renal disease; I16.1 Hypertensive emergency; I42.0 Dilated cardiomyopathy; E11.22 Type 2 diabetes mellitus with diabetic chronic kidney disease; D63.1 Anemia in chronic kidney disease; I27.20 Pulmonary hypertension, unspecified; R06.03 Acute respiratory distress; E11.51 Type 2 diabetes mellitus with diabetic peripheral angiopathy without gangrene; F32.9 Major depressive disorder, single episode, unspecified; F03.90 Unspecified dementia, unspecified severity, without behavioral disturbance, psychotic disturbance, mood disturbance, and anxiety; F41.9 Anxiety disorder, unspecified; I25.10 Atherosclerotic heart disease of native coronary artery without angina pectoris; J20.9 Acute bronchitis, unspecified; Z87.891 Personal history of nicotine dependence; Z99.2 Dependence on renal dialysis; Z91.15 Patient's noncompliance with renal dialysis; Z20.828 Contact with and (suspected) exposure to other viral communicable diseases
CPT/HCPCS: 36415; 71045; 80048; 80053; 80061; 81001; 82565; 82962; 83036; 83540; 83550; 83880; 84484; 85025; 85610; 85730; 87081; 90935; 93005; 93926; 99152; 99153; C1751; G0378; J1642; J2250; J2405; Q9967

== ENCOUNTER 2020-03-12 14:20 | Inpatient (IN) | payer MEDICARE, MEDICAID ==
[2020-03-12] VITALS (21 sets, daily range): BP systolic 114–125; BP diastolic 47–51
[~2020-03-12] VITALS: Ht 177.8 cm; Wt 146.2 kg
[2020-03-12] MEDS ORDERED: MIDAZOLAM DRIP 50 mg/50mL 50 ML IV ONE (14:30)
[2020-03-12] MEDS ORDERED: ACETAMINOPHEN 120 MG RECT SUPP PR ONE (14:37)
[2020-03-12] MEDS: MIDAZOLAM DRIP 50 mg/50mL 50 ML IV SCH (14:45)
[2020-03-12] MEDS ORDERED: ETOMIDATE (2MG/ML) 20ML VIAL IV ONE (15:00)
[2020-03-12] MEDS ORDERED: SUCCINYLCHOLINE CHLORIDE 20 MG/ML 10ML VIAL IV ONE (15:00)
[2020-03-12] MEDS ORDERED: methylPREDNISolone SOD SUCC 125 MG/2 ML VL IV ONE (15:00)
[2020-03-12] MEDS ORDERED: ACETAMINOPHEN 325 MG RECT SUPP PR ONE (15:00)
[2020-03-12 15:17] LABS: Basophils # (auto) 0 10 ^3/uL (0-0.2); Basophils % (auto) 0.4 % (0.0-2.0); Eosinophils # (auto) 0 10 ^3/uL (0-0.8); Hematocrit 34.3 % (41.0-53.0); Lymphocytes # (auto) 0.3 10 ^3/uL (0.4-5.4); Lymphocytes % (auto) 4.1 % (10.0-50.0); Mean Corpuscular Hemoglobin 30.3 pg (28.0-32.0); Mean Corpuscular Volume 94.6 fL (80.0-100.0); Monocytes # (auto) 0.4 10 ^3/uL (0-1.3); Monocytes % (auto) 5.8 % (0.0-12.0); Neutrophils # (auto) 5.5 10 ^3/uL (1.6-8.6); Neutrophils % (auto) 89.7 % (37.0-80.0); Nucleated Red Blood Cells % 0.2 %; Platelet Count (auto) 186 10^3/uL (140-450); Red Blood Cells 3.62 10^6/uL (4.5-5.90); Red Cell Distribution Width 17.4 % (11.8-14.3); White Blood Cell 6.1 10^3/uL (4.4-10.8)
[2020-03-12] MEDS: NOREPINEPHRINE 8 MG/250ML KIT 250 ML IV SCH (15:22)
[2020-03-12 15:36] LABS: Albumin 2.4 g/dL (3.4-5.0); Calcium 8.1 mg/dL (8.5-10.1); Potassium 5.3 mmol/L (3.5-5.1)
[2020-03-12 15:41] LABS: BUN/Creatinine Ratio 7.2; Bilirubin, Total 0.7 mg/dL (0.2-1.0); Total Protein 6.8 g/dL (6.4-8.2)
[2020-03-12 15:53] LABS: CRP High Sensitivity 11.4 mg/dL (< 0.3)
[2020-03-12] MEDS ORDERED: MORPHINE SULF INJ 2 MG/ML SYRINGE 1ML IV PRN (16:45)
[2020-03-12] MEDS ORDERED: NITROGLYCERIN 0.4 MG SL TAB SL PRN (16:45)
[2020-03-12] MEDS: PANTOPRAZOLE 40 MG/10 ML VIAL INJ IV SCH (22:00)
[2020-03-12 23:35] LABS: INR 1.23 (0.9-1.15); Partial Thromboplastin Time 43.5 sec (23.0-31.2)
[2020-03-12 23:42] LABS: BUN/Creatinine Ratio 7.9; Calcium 8.3 mg/dL (8.5-10.1); Potassium 5.4 mmol/L (3.5-5.1)
[2020-03-13] VITALS (95 sets, daily range): BP systolic 86–150; BP diastolic 44–84
[2020-03-13 09:14] LABS: Basophils # (auto) 0 10 ^3/uL (0-0.2); Basophils % (auto) 0.1 % (0.0-2.0); Eosinophils # (auto) 0 10 ^3/uL (0-0.8); Hematocrit 35.3 % (41.0-53.0); Lymphocytes # (auto) 0.2 10 ^3/uL (0.4-5.4); Lymphocytes % (auto) 5.4 % (10.0-50.0); Mean Corpuscular Hemoglobin 29.1 pg (28.0-32.0); Monocytes # (auto) 0.2 10 ^3/uL (0-1.3); Monocytes % (auto) 4.7 % (0.0-12.0); Neutrophils # (auto) 3.3 10 ^3/uL (1.6-8.6); Neutrophils % (auto) 89.8 % (37.0-80.0); Nucleated Red Blood Cells % 0.6 %; Platelet Count (auto) 206 10^3/uL (140-450); Red Blood Cells 3.76 10^6/uL (4.5-5.90); Red Cell Distribution Width 17.6 % (11.8-14.3); White Blood Cell 3.7 10^3/uL (4.4-10.8)
[2020-03-13 09:25] LABS: Albumin 2.3 g/dL (3.4-5.0); Calcium 8.4 mg/dL (8.5-10.1); Potassium 5.3 mmol/L (3.5-5.1)
[2020-03-13 09:29] LABS: BUN/Creatinine Ratio 9.3; Bilirubin, Total 0.8 mg/dL (0.2-1.0); Total Protein 6.6 g/dL (6.4-8.2)
[2020-03-13] MEDS: ZINC SULFATE 220mg CAP or TAB NG SCH (09:45)
[2020-03-13] MEDS: CHOLECALCIFEROL (VITD3) 2,000 UNIT CAP PO SCH (09:45)
[2020-03-13] MEDS: ASCORBIC ACID 500 MG TAB NG SCH (09:45)
[2020-03-13] MEDS: PANTOPRAZOLE 40 MG/10 ML VIAL INJ IV SCH ×2 (09:45→22:05)
[2020-03-13] MEDS: cefTRIAXone 1GM/50ML D5W 50 ML IV SCH (09:45)
[2020-03-13] MEDS: AZITHROMYCIN 500MG/ 250ML 250 ML IV SCH (10:57)
[2020-03-13] MEDS: MIDAZOLAM DRIP 50 mg/50mL 50 ML IV SCH ×2 (13:00→22:00)
[2020-03-13] MEDS: DexAMETHasone SOD PHOS 10MG/1ML VIAL INJ IV SCH (13:02)
[2020-03-13] MEDS: HEPARIN SODIUM (PORCINE) 5000 UNITS/ML 1ML VIAL SC SCH ×2 (13:02→22:06)
[2020-03-13] MEDS: NOREPINEPHRINE 8 MG/250ML KIT 250 ML IV SCH (13:08)
[2020-03-14] VITALS (101 sets, daily range): BP systolic 70–141; BP diastolic 37–60
[2020-03-14] MEDS: ACETAMINOPHEN 650 MG RECT SUPP PR PRN ×2 (01:43→16:30)
[2020-03-14] MEDS: MIDAZOLAM DRIP 50 mg/50mL 50 ML IV SCH ×3 (04:48→19:45)
[2020-03-14 05:07] LABS: Basophils # (auto) 0 10 ^3/uL (0-0.2); Basophils % (auto) 0.1 % (0.0-2.0); Eosinophils # (auto) 0 10 ^3/uL (0-0.8); Hematocrit 34.9 % (41.0-53.0); Hemoglobin 11.3 g/dL (13.5-17.5); Lymphocytes # (auto) 0.1 10 ^3/uL (0.4-5.4); Lymphocytes % (auto) 0.9 % (10.0-50.0); Mean Corpuscular Hemoglobin 29.8 pg (28.0-32.0); Mean Corpuscular Hgb Conc. 32.3 g/dL (32.0-36.0); Mean Corpuscular Volume 92.3 fL (80.0-100.0); Monocytes # (auto) 0.3 10 ^3/uL (0-1.3); Monocytes % (auto) 4.1 % (0.0-12.0); Neutrophils # (auto) 7.8 10 ^3/uL (1.6-8.6); Neutrophils % (auto) 94.9 % (37.0-80.0); Nucleated Red Blood Cells % 0.1 %; Platelet Count (auto) 205 10^3/uL (140-450); Red Blood Cells 3.78 10^6/uL (4.5-5.90); Red Cell Distribution Width 17.1 % (11.8-14.3); White Blood Cell 8.2 10^3/uL (4.4-10.8)
[2020-03-14 05:28] LABS: Potassium 4.4 mmol/L (3.5-5.1)
[2020-03-14 05:34] LABS: Albumin 2.4 g/dL (3.4-5.0); BUN/Creatinine Ratio 10.3; Bilirubin, Total 0.7 mg/dL (0.2-1.0); Calcium 8.4 mg/dL (8.5-10.1); Total Protein 6.6 g/dL (6.4-8.2)
[2020-03-14] MEDS: PANTOPRAZOLE 40 MG/10 ML VIAL INJ IV SCH ×2 (09:53→22:00)
[2020-03-14] MEDS: DexAMETHasone SOD PHOS 10MG/1ML VIAL INJ IV SCH (09:53)
[2020-03-14] MEDS: CHOLECALCIFEROL (VITD3) 2,000 UNIT CAP PO SCH (09:53)
[2020-03-14] MEDS: ZINC SULFATE 220mg CAP or TAB NG SCH (09:53)
[2020-03-14] MEDS: ASCORBIC ACID 500 MG TAB NG SCH (09:53)
[2020-03-14] MEDS: cefTRIAXone 1GM/50ML D5W 50 ML IV SCH (09:54)
[2020-03-14] MEDS: AZITHROMYCIN 500MG/ 250ML 250 ML IV SCH (09:54)
[2020-03-14] MEDS: HEPARIN SODIUM (PORCINE) 5000 UNITS/ML 1ML VIAL SC SCH ×2 (09:56→22:00)
[2020-03-14] MEDS: NOREPINEPHRINE 8 MG/250ML KIT 250 ML IV SCH (14:59)
[2020-03-15] VITALS (104 sets, daily range): BP systolic 74–155; BP diastolic 40–98
[2020-03-15 03:35] LABS: Basophils # (auto) 0 10 ^3/uL (0-0.2); Basophils % (auto) 0.3 % (0.0-2.0); Eosinophils # (auto) 0 10 ^3/uL (0-0.8); Hematocrit 39.2 % (41.0-53.0); Hemoglobin 12.7 g/dL (13.5-17.5); Lymphocytes # (auto) 0.1 10 ^3/uL (0.4-5.4); Lymphocytes % (auto) 1.3 % (10.0-50.0); Mean Corpuscular Hemoglobin 29.7 pg (28.0-32.0); Mean Corpuscular Hgb Conc. 32.5 g/dL (32.0-36.0); Mean Corpuscular Volume 91.5 fL (80.0-100.0); Monocytes # (auto) 0.4 10 ^3/uL (0-1.3); Monocytes % (auto) 3.9 % (0.0-12.0); Neutrophils # (auto) 8.6 10 ^3/uL (1.6-8.6); Neutrophils % (auto) 94.5 % (37.0-80.0); Nucleated Red Blood Cells % 0.2 %; Platelet Count (auto) 228 10^3/uL (140-450); Red Blood Cells 4.28 10^6/uL (4.5-5.90); White Blood Cell 9.1 10^3/uL (4.4-10.8)
[2020-03-15 03:54] LABS: Albumin 2.1 g/dL (3.4-5.0); Calcium 8.4 mg/dL (8.5-10.1)
[2020-03-15 03:58] LABS: BUN/Creatinine Ratio 11.7; Bilirubin, Total 0.7 mg/dL (0.2-1.0); Total Protein 6.7 g/dL (6.4-8.2)
[2020-03-15] MEDS ORDERED: SODIUM CHL 0.9% 1000 ML BAG XX ONE (07:00)
[2020-03-15] MEDS: HEPARIN SODIUM (PORCINE) 5000 UNITS/ML 1ML VIAL SC SCH ×2 (10:00→22:26)
[2020-03-15] MEDS: NOREPINEPHRINE 8 MG/250ML KIT 250 ML IV SCH ×2 (12:10→16:08)
[2020-03-15 13:27] LABS: Hepatitis B Surface Antibody Positive
[2020-03-15 13:45] LABS: Hepatitis B Surface Antigen Negative (Negative)
[2020-03-15] MEDS ORDERED: levoFLOXacin 750MG 150 ML IV ONE (14:45)
[2020-03-15] MEDS: MIDAZOLAM DRIP 50 mg/50mL 50 ML IV SCH ×2 (16:07→21:15)
[2020-03-15] MEDS ORDERED: Nepro With Carb Steady 1 Liter Bottle GT SCH (17:15)
[2020-03-15] MEDS: PANTOPRAZOLE 40 MG/10 ML VIAL INJ IV SCH ×2 (17:34→22:26)
[2020-03-15] MEDS: ASCORBIC ACID 500 MG TAB NG SCH (17:34)
[2020-03-15] MEDS: ZINC SULFATE 220mg CAP or TAB NG SCH (17:35)
[2020-03-15] MEDS: DexAMETHasone SOD PHOS 10MG/1ML VIAL INJ IV SCH (17:35)
[2020-03-15] MEDS: CHOLECALCIFEROL (VITD3) 2,000 UNIT CAP PO SCH (17:35)
[2020-03-15] MEDS: fentaNYL Drip 2500mCg/250mlNS 250 ML IV SCH (17:36)
[2020-03-15] MEDS: TOBRAMYCIN 300 MG/5 ML NEB SOLN NEB SCH (22:38)
[2020-03-16] VITALS (98 sets, daily range): BP systolic 82–141; BP diastolic 32–65
[2020-03-16] MEDS: NOREPINEPHRINE 8 MG/250ML KIT 250 ML IV SCH (01:10)
[2020-03-16] MEDS: DexAMETHasone SOD PHOS 10MG/1ML VIAL INJ IV SCH (09:58)
[2020-03-16] MEDS: PANTOPRAZOLE 40 MG/10 ML VIAL INJ IV SCH ×2 (09:58→21:31)
[2020-03-16] MEDS: ZINC SULFATE 220mg CAP or TAB NG SCH (09:59)
[2020-03-16] MEDS: ASCORBIC ACID 500 MG TAB NG SCH (09:59)
[2020-03-16] MEDS: HEPARIN SODIUM (PORCINE) 5000 UNITS/ML 1ML VIAL SC SCH ×2 (09:59→21:32)
[2020-03-16] MEDS: CHOLECALCIFEROL (VITD3) 2,000 UNIT CAP PO SCH (09:59)
[2020-03-16 10:42] LABS: Basophils # (auto) 0 10 ^3/uL (0-0.2); Basophils % (auto) 0.1 % (0.0-2.0); Eosinophils # (auto) 0 10 ^3/uL (0-0.8); Eosinophils % (auto) 0.4 % (0.0-7.0); Hematocrit 38.3 % (41.0-53.0); Hemoglobin 12.6 g/dL (13.5-17.5); Lymphocytes # (auto) 0.1 10 ^3/uL (0.4-5.4); Lymphocytes % (auto) 1.3 % (10.0-50.0); Mean Corpuscular Volume 90.9 fL (80.0-100.0); Monocytes # (auto) 0.3 10 ^3/uL (0-1.3); Monocytes % (auto) 3.9 % (0.0-12.0); Neutrophils # (auto) 8.3 10 ^3/uL (1.6-8.6); Neutrophils % (auto) 94.3 % (37.0-80.0); Nucleated Red Blood Cells % 0.2 %; Platelet Count (auto) 184 10^3/uL (140-450); Red Blood Cells 4.21 10^6/uL (4.5-5.90); Red Cell Distribution Width 17.2 % (11.8-14.3); White Blood Cell 8.9 10^3/uL (4.4-10.8)
[2020-03-16 11:09] LABS: Albumin 2.2 g/dL (3.4-5.0); Calcium 8.5 mg/dL (8.5-10.1); Magnesium 2.6 mg/dL (1.6-2.6)
[2020-03-16 11:14] LABS: BUN/Creatinine Ratio 12.2; Bilirubin, Total 0.7 mg/dL (0.2-1.0)
[2020-03-16] MEDS: TOBRAMYCIN 300 MG/5 ML NEB SOLN NEB SCH ×2 (14:07→22:28)
[2020-03-16] MEDS: levoFLOXacin 500MG 100 ML IV SCH (16:08)
[2020-03-16] MEDS: fentaNYL Drip 2500mCg/250mlNS 250 ML IV SCH (17:15)
[2020-03-17] VITALS (102 sets, daily range): BP systolic 74–158; BP diastolic 34–73
[2020-03-17] MEDS: NOREPINEPHRINE 8 MG/250ML KIT 250 ML IV SCH ×3 (04:00→15:14)
[2020-03-17 05:23] LABS: Basophils # (auto) 0 10 ^3/uL (0-0.2); Basophils % (auto) 0.1 % (0.0-2.0); Eosinophils # (auto) 0 10 ^3/uL (0-0.8); Hematocrit 35.7 % (41.0-53.0); Hemoglobin 11.8 g/dL (13.5-17.5); Lymphocytes # (auto) 0.1 10 ^3/uL (0.4-5.4); Lymphocytes % (auto) 1.7 % (10.0-50.0); Mean Corpuscular Hemoglobin 29.9 pg (28.0-32.0); Mean Corpuscular Hgb Conc. 33.1 g/dL (32.0-36.0); Mean Corpuscular Volume 90.4 fL (80.0-100.0); Monocytes # (auto) 0.4 10 ^3/uL (0-1.3); Monocytes % (auto) 5.7 % (0.0-12.0); Neutrophils # (auto) 6.8 10 ^3/uL (1.6-8.6); Neutrophils % (auto) 92.5 % (37.0-80.0); Nucleated Red Blood Cells % 0.4 %; Platelet Count (auto) 221 10^3/uL (140-450); Red Blood Cells 3.95 10^6/uL (4.5-5.90); Red Cell Distribution Width 16.8 % (11.8-14.3); White Blood Cell 7.4 10^3/uL (4.4-10.8)
[2020-03-17 05:47] LABS: Albumin 2.1 g/dL (3.4-5.0); Calcium 8.2 mg/dL (8.5-10.1); Potassium 5.3 mmol/L (3.5-5.1)
[2020-03-17 05:50] LABS: BUN/Creatinine Ratio 13.9; Bilirubin, Total 0.7 mg/dL (0.2-1.0); Total Protein 6.3 g/dL (6.4-8.2)
[2020-03-17] MEDS ORDERED: SODIUM CHL 0.9% 1000 ML BAG XX ONE (07:00)
[2020-03-17] MEDS: PANTOPRAZOLE 40 MG/10 ML VIAL INJ IV SCH ×2 (09:40→22:03)
[2020-03-17] MEDS: ZINC SULFATE 220mg CAP or TAB NG SCH (09:40)
[2020-03-17] MEDS: CHOLECALCIFEROL (VITD3) 2,000 UNIT CAP PO SCH (09:40)
[2020-03-17] MEDS: ASCORBIC ACID 500 MG TAB NG SCH (09:40)
[2020-03-17] MEDS: DexAMETHasone SOD PHOS 10MG/1ML VIAL INJ IV SCH (09:41)
[2020-03-17] MEDS: HEPARIN SODIUM (PORCINE) 5000 UNITS/ML 1ML VIAL SC SCH (09:41)
[2020-03-17] MEDS: TOBRAMYCIN 300 MG/5 ML NEB SOLN NEB SCH ×2 (10:25→22:53)
[2020-03-17] MEDS: MIDAZOLAM DRIP 50 mg/50mL 50 ML IV SCH (14:58)
[2020-03-17] MEDS ORDERED: HEPARIN SODIUM (PORCINE) 5000 UNITS/ML 1ML VIAL IV ONE (17:00)
[2020-03-17] MEDS: fentaNYL Drip 2500mCg/250mlNS 250 ML IV SCH (17:15)
[2020-03-17 17:18] LABS: Basophils # (auto) 0 10 ^3/uL (0-0.2); Basophils % (auto) 0.3 % (0.0-2.0); Eosinophils # (auto) 0 10 ^3/uL (0-0.8); Eosinophils % (auto) 0.2 % (0.0-7.0); Hematocrit 36.9 % (41.0-53.0); Hemoglobin 12.2 g/dL (13.5-17.5); Lymphocytes # (auto) 0.1 10 ^3/uL (0.4-5.4); Mean Corpuscular Hemoglobin 29.9 pg (28.0-32.0); Mean Corpuscular Volume 90.6 fL (80.0-100.0); Monocytes # (auto) 0.3 10 ^3/uL (0-1.3); Monocytes % (auto) 4.9 % (0.0-12.0); Neutrophils # (auto) 5.5 10 ^3/uL (1.6-8.6); Neutrophils % (auto) 93.6 % (37.0-80.0); Nucleated Red Blood Cells % 0.2 %; Platelet Count (auto) 206 10^3/uL (140-450); Red Blood Cells 4.08 10^6/uL (4.5-5.90); Red Cell Distribution Width 16.6 % (11.8-14.3); White Blood Cell 5.9 10^3/uL (4.4-10.8)
[2020-03-17 17:37] LABS: INR 1.31 (0.9-1.15); Partial Thromboplastin Time 44.9 sec (23.0-31.2)
[2020-03-17] MEDS: HEPARIN DRIP/D5W 100UNITS/ML 250 ML IV SCH (17:55)
[2020-03-18] VITALS (95 sets, daily range): BP systolic 91–119; BP diastolic 49–60
[2020-03-18] MEDS: NOREPINEPHRINE 8 MG/250ML KIT 250 ML IV SCH ×3 (02:01→23:03)
[2020-03-18 02:08] LABS: INR 1.42 (0.9-1.15)
[2020-03-18 02:10] LABS: Partial Thromboplastin Time 118.9 sec (23.0-31.2)
[2020-03-18 04:25] LABS: Basophils # (auto) 0 10 ^3/uL (0-0.2); Basophils % (auto) 0.4 % (0.0-2.0); Eosinophils # (auto) 0 10 ^3/uL (0-0.8); Hematocrit 38.1 % (41.0-53.0); Hemoglobin 12.6 g/dL (13.5-17.5); Lymphocytes # (auto) 0.2 10 ^3/uL (0.4-5.4); Lymphocytes % (auto) 2.2 % (10.0-50.0); Mean Corpuscular Hemoglobin 29.8 pg (28.0-32.0); Mean Corpuscular Hgb Conc. 32.9 g/dL (32.0-36.0); Mean Corpuscular Volume 90.6 fL (80.0-100.0); Monocytes # (auto) 0.4 10 ^3/uL (0-1.3); Monocytes % (auto) 5.1 % (0.0-12.0); Neutrophils # (auto) 6.6 10 ^3/uL (1.6-8.6); Neutrophils % (auto) 92.3 % (37.0-80.0); Nucleated Red Blood Cells % 0.4 %; Platelet Count (auto) 243 10^3/uL (140-450); Red Blood Cells 4.21 10^6/uL (4.5-5.90); Red Cell Distribution Width 17.1 % (11.8-14.3); White Blood Cell 7.2 10^3/uL (4.4-10.8)
[2020-03-18 04:50] LABS: Albumin 2.1 g/dL (3.4-5.0); Calcium 8.6 mg/dL (8.5-10.1); Magnesium 2.5 mg/dL (1.6-2.6); Potassium 4.4 mmol/L (3.5-5.1)
[2020-03-18 04:53] LABS: BUN/Creatinine Ratio 12.8
[2020-03-18 04:56] LABS: Bilirubin, Total 0.8 mg/dL (0.2-1.0); Total Protein 6.6 g/dL (6.4-8.2)
[2020-03-18 05:09] LABS: CRP High Sensitivity 9.42 mg/dL (< 0.3)
[2020-03-18] MEDS: TOBRAMYCIN 300 MG/5 ML NEB SOLN NEB SCH ×2 (06:40→22:16)
[2020-03-18] MEDS: AZITHROMYCIN 500MG/ 250ML 250 ML IV SCH (09:16)
[2020-03-18] MEDS: PANTOPRAZOLE 40 MG/10 ML VIAL INJ IV SCH ×2 (09:16→22:12)
[2020-03-18] MEDS: DexAMETHasone SOD PHOS 10MG/1ML VIAL INJ IV SCH (09:16)
[2020-03-18] MEDS: CHOLECALCIFEROL (VITD3) 2,000 UNIT CAP PO SCH (09:16)
[2020-03-18] MEDS: ZINC SULFATE 220mg CAP or TAB NG SCH (09:16)
[2020-03-18] MEDS: ASCORBIC ACID 500 MG TAB NG SCH (09:17)
[2020-03-18 09:35] LABS: INR 1.36 (0.9-1.15)
[2020-03-18 09:36] LABS: Partial Thromboplastin Time > 139.0 sec (23.0-31.2)
[2020-03-18] MEDS: MIDAZOLAM DRIP 50 mg/50mL 50 ML IV SCH (15:00)
[2020-03-18] MEDS: HEPARIN DRIP/D5W 100UNITS/ML 250 ML IV SCH (16:30)
[2020-03-18] MEDS: levoFLOXacin 500MG 100 ML IV SCH (16:51)
[2020-03-18 17:00] LABS: INR 1.35 (0.9-1.15); Partial Thromboplastin Time 54.4 sec (23.0-31.2)
[2020-03-18] MEDS: fentaNYL Drip 2500mCg/250mlNS 250 ML IV SCH (17:15)
[2020-03-18 23:59] LABS: INR 1.41 (0.9-1.15); Partial Thromboplastin Time 56.3 sec (23.0-31.2)
[2020-03-19] VITALS (91 sets, daily range): BP systolic 63–150; BP diastolic 31–78
[2020-03-19 07:10] LABS: Basophils # (auto) 0 10 ^3/uL (0-0.2); Basophils % (auto) 0.2 % (0.0-2.0); Eosinophils # (auto) 0 10 ^3/uL (0-0.8); Hematocrit 36.8 % (41.0-53.0); Hemoglobin 12.3 g/dL (13.5-17.5); Lymphocytes # (auto) 0.2 10 ^3/uL (0.4-5.4); Lymphocytes % (auto) 3.1 % (10.0-50.0); Mean Corpuscular Hemoglobin 29.9 pg (28.0-32.0); Mean Corpuscular Hgb Conc. 33.3 g/dL (32.0-36.0); Mean Corpuscular Volume 89.7 fL (80.0-100.0); Monocytes # (auto) 0.5 10 ^3/uL (0-1.3); Monocytes % (auto) 6.8 % (0.0-12.0); Neutrophils % (auto) 89.9 % (37.0-80.0); Platelet Count (auto) 201 10^3/uL (140-450); Red Cell Distribution Width 17.1 % (11.8-14.3); White Blood Cell 6.7 10^3/uL (4.4-10.8)
[2020-03-19 07:14] LABS: BUN/Creatinine Ratio 17.9; Calcium 8.6 mg/dL (8.5-10.1); Potassium 4.9 mmol/L (3.5-5.1)
[2020-03-19 07:16] LABS: INR 1.4 (0.9-1.15); Partial Thromboplastin Time 52.3 sec (23.0-31.2)
[2020-03-19] MEDS: DexAMETHasone SOD PHOS 10MG/1ML VIAL INJ IV SCH (09:42)
[2020-03-19] MEDS: AZITHROMYCIN 500MG/ 250ML 250 ML IV SCH (09:42)
[2020-03-19] MEDS: PANTOPRAZOLE 40 MG/10 ML VIAL INJ IV SCH ×2 (09:42→21:30)
[2020-03-19] MEDS: ASCORBIC ACID 500 MG TAB NG SCH (09:43)
[2020-03-19] MEDS: CHOLECALCIFEROL (VITD3) 2,000 UNIT CAP PO SCH (09:43)
[2020-03-19] MEDS: ZINC SULFATE 220mg CAP or TAB NG SCH (09:43)
[2020-03-19] MEDS: TOBRAMYCIN 300 MG/5 ML NEB SOLN NEB SCH ×2 (10:00→22:24)
[2020-03-19] MEDS: HEPARIN DRIP/D5W 100UNITS/ML 250 ML IV SCH (10:40)
[2020-03-19] MEDS ORDERED: DEXTROSE (50%) 50ML SYRG IV PRN ×2 (11:15→16:15)
[2020-03-19] MEDS ORDERED: InsuLIN REG 1unit/0.01ml Soln (100units/ml) SC SCH (12:00)
[2020-03-19] MEDS ORDERED: ACCU-CHEK COMFORT CURVE STRIP VI SCH (12:00)
[2020-03-19] MEDS: NOREPINEPHRINE 8 MG/250ML KIT 250 ML IV SCH (13:28)
[2020-03-19] MEDS: MIDAZOLAM DRIP 50 mg/50mL 50 ML IV SCH (15:00)
[2020-03-19] MEDS: NOREPINEPHRINE BITARTRATE 16 MG in SODIUM CHL 0.9% 250 ML IV SCH (20:00)
[2020-03-19] MEDS: ACCU-CHEK COMFORT CURVE STRIP VI SCH (20:00)
[2020-03-19] MEDS: InsuLIN REG 1unit/0.01ml Soln (100units/ml) SC SCH (20:39)
[2020-03-19] MEDS: fentaNYL Drip 2500mCg/250mlNS 250 ML IV SCH (21:18)
[2020-03-20] VITALS (97 sets, daily range): BP systolic 74–144; BP diastolic 31–66
[2020-03-20] MEDS: InsuLIN REG 1unit/0.01ml Soln (100units/ml) SC SCH ×6 (00:39→20:00)
[2020-03-20] MEDS: ACCU-CHEK COMFORT CURVE STRIP VI SCH ×6 (04:00→20:24)
[2020-03-20 04:25] LABS: Hematocrit 36.4 % (41.0-53.0); Hemoglobin 12.3 g/dL (13.5-17.5); Mean Corpuscular Hemoglobin 29.8 pg (28.0-32.0); Mean Corpuscular Hgb Conc. 33.7 g/dL (32.0-36.0); Mean Corpuscular Volume 88.4 fL (80.0-100.0); Platelet Count (auto) 177 10^3/uL (140-450); Red Blood Cells 4.12 10^6/uL (4.5-5.90); Red Cell Distribution Width 16.6 % (11.8-14.3); White Blood Cell 12.3 10^3/uL (4.4-10.8)
[2020-03-20 04:31] LABS: Basophils % (manual) 0 (0.0-2.0); Blast Cells 0; Eosinophils % (manual) 0 (0-7); Metamyelocytes % 0; Myelocytes % 0; Promyelocytes % 0; Reactive Lymphocytes 0
[2020-03-20 04:43] LABS: INR 1.31 (0.9-1.15); Partial Thromboplastin Time 44.2 sec (23.0-31.2)
[2020-03-20 04:45] LABS: BUN/Creatinine Ratio 16.8; Calcium 8.5 mg/dL (8.5-10.1)
[2020-03-20] MEDS: HEPARIN DRIP/D5W 100UNITS/ML 250 ML IV SCH (05:32)
[2020-03-20 05:48] LABS: Band Neutrophils % (manual) 2; Lymphocytes % (manual) 14 (10.0-50.0); Monocytes % (manual) 7 (0-12)
[2020-03-20] MEDS ORDERED: SODIUM CHL 0.9% 1000 ML BAG XX ONE (07:00)
[2020-03-20] MEDS: PANTOPRAZOLE 40 MG/10 ML VIAL INJ IV SCH ×2 (10:04→22:00)
[2020-03-20] MEDS: AZITHROMYCIN 500MG/ 250ML 250 ML IV SCH (10:04)
[2020-03-20] MEDS: ASCORBIC ACID 500 MG TAB NG SCH (10:05)
[2020-03-20] MEDS: DexAMETHasone SOD PHOS 10MG/1ML VIAL INJ IV SCH (10:05)
[2020-03-20] MEDS: CHOLECALCIFEROL (VITD3) 2,000 UNIT CAP PO SCH (10:06)
[2020-03-20] MEDS: ZINC SULFATE 220mg CAP or TAB NG SCH (10:06)
[2020-03-20] MEDS: TOBRAMYCIN 300 MG/5 ML NEB SOLN NEB SCH ×2 (10:53→22:26)
[2020-03-20 11:15] LABS: INR 1.31 (0.9-1.15); Partial Thromboplastin Time 63.2 sec (23.0-31.2)
[2020-03-20] MEDS ORDERED: ALBUMIN 5% 0 ML IV ONE (14:06)
[2020-03-20] MEDS: MIDAZOLAM DRIP 50 mg/50mL 50 ML IV SCH (15:00)
[2020-03-20] MEDS: NOREPINEPHRINE BITARTRATE 16 MG in SODIUM CHL 0.9% 250 ML IV SCH (17:00)
[2020-03-20] MEDS: fentaNYL Drip 2500mCg/250mlNS 250 ML IV SCH (17:15)
[2020-03-20] MEDS: levoFLOXacin 500MG 100 ML IV SCH (17:50)
[2020-03-20 18:49] LABS: INR 1.4 (0.9-1.15); Partial Thromboplastin Time 66.4 sec (23.0-31.2)
[2020-03-21] VITALS (95 sets, daily range): BP systolic 49–147; BP diastolic 22–76
[2020-03-21] MEDS ORDERED: AMIODARONE 450mg/250ml AE 250 ML IV SCH
[2020-03-21] MEDS ORDERED: AMIODARONE HCL (50 MG/ ML) 3 ML VIAL IV ONE
[2020-03-21] MEDS ORDERED: AMIODARONE HCL 75 MG in D5W 5% 100 ML IV ONE ×2
[2020-03-21] MEDS: InsuLIN REG 1unit/0.01ml Soln (100units/ml) SC SCH ×6 (00:32→23:24)
[2020-03-21 01:47] LABS: INR 1.4 (0.9-1.15)
[2020-03-21] MEDS: HEPARIN DRIP/D5W 100UNITS/ML 250 ML IV SCH ×3 (04:20→09:03)
[2020-03-21 04:28] LABS: Calcium 8.8 mg/dL (8.5-10.1); Potassium 5.1 mmol/L (3.5-5.1)
[2020-03-21] MEDS: ACCU-CHEK COMFORT CURVE STRIP VI SCH ×6 (04:29→23:46)
[2020-03-21 04:30] LABS: BUN/Creatinine Ratio 19.1
[2020-03-21 04:44] LABS: Hemoglobin 12.1 g/dL (13.5-17.5); Mean Corpuscular Volume 89.9 fL (80.0-100.0)
[2020-03-21 05:07] LABS: Hematocrit 36.9 % (41.0-53.0); Mean Corpuscular Hemoglobin 29.4 pg (28.0-32.0); Mean Corpuscular Hgb Conc. 32.7 g/dL (32.0-36.0); Platelet Count (auto) 173 10^3/uL (140-450); Red Cell Distribution Width 17.1 % (11.8-14.3); White Blood Cell 14.2 10^3/uL (4.4-10.8)
[2020-03-21 05:14] LABS: Basophils % (manual) 0 (0.0-2.0); Blast Cells 0; Eosinophils % (manual) 0 (0-7); Myelocytes % 0; Promyelocytes % 0; Reactive Lymphocytes 0
[2020-03-21] MEDS: AMIODARONE 450mg/250ml AE 250 ML IV SCH ×3 (06:00→09:04)
[2020-03-21] MEDS: NOREPINEPHRINE BITARTRATE 16 MG in SODIUM CHL 0.9% 250 ML IV SCH ×2 (07:00→09:05)
[2020-03-21] MEDS: TOBRAMYCIN 300 MG/5 ML NEB SOLN NEB SCH (07:04)
[2020-03-21 07:20] LABS: Band Neutrophils % (manual) 8; Lymphocytes % (manual) 3 (10.0-50.0); Metamyelocytes % 2; Monocytes % (manual) 6 (0-12)
[2020-03-21 08:52] LABS: INR 1.39 (0.9-1.15); Partial Thromboplastin Time 49.6 sec (23.0-31.2)
[2020-03-21] MEDS: DexAMETHasone SOD PHOS 10MG/1ML VIAL INJ IV SCH (10:38)
[2020-03-21] MEDS: AZITHROMYCIN 500MG/ 250ML 250 ML IV SCH (10:39)
[2020-03-21] MEDS: PANTOPRAZOLE 40 MG/10 ML VIAL INJ IV SCH ×2 (10:39→23:46)
[2020-03-21] MEDS: ZINC SULFATE 220mg CAP or TAB NG SCH (10:39)
[2020-03-21] MEDS: ASCORBIC ACID 500 MG TAB NG SCH (10:40)
[2020-03-21] MEDS: CHOLECALCIFEROL (VITD3) 2,000 UNIT CAP PO SCH (10:40)
[2020-03-21] MEDS ORDERED: CALCIUM GLUC 4.65meq/50ml D5AE 50 ML IV ONE (15:30)
[2020-03-21] MEDS ORDERED: SODIUM ZIRCONIUM CYCL 10 GM PAK PO ONE (15:30)
[2020-03-21] MEDS ORDERED: SODIUM BICARBONATE 8.4 % INJ 50ML VIAL IV ONE (15:30)
[2020-03-21] MEDS ORDERED: InsuLIN REG 1unit/0.01ml Soln (100units/ml) IV ONE (15:30)
[2020-03-21] MEDS ORDERED: DEXTROSE (50%) 50ML SYRG IV ONE (15:30)
[2020-03-21] MEDS: MIDAZOLAM DRIP 50 mg/50mL 50 ML IV SCH (16:13)
[2020-03-21] MEDS: fentaNYL Drip 2500mCg/250mlNS 250 ML IV SCH (17:15)
[2020-03-21] MEDS ORDERED: MORPHINE SULF INJ 2 MG/ML SYRINGE 1ML IV PRN (18:30)
[2020-03-21] MEDS: HEPARIN SODIUM (PORCINE) 5000 UNITS/ML 1ML VIAL SC SCH (23:46)
[2020-03-21 23:57] LABS: BUN/Creatinine Ratio 18.9; Calcium 8.5 mg/dL (8.5-10.1); Magnesium 2.5 mg/dL (1.6-2.6)
[2020-03-22] VITALS (69 sets, daily range): BP systolic 56–163; BP diastolic 27–84
[2020-03-22 00:06] LABS: Potassium 5.9 mmol/L (3.5-5.1)
[2020-03-22] MEDS ORDERED: CALCIUM GLUC 4.65meq/50ml D5AE 50 ML IV ONE (00:30)
[2020-03-22] MEDS ORDERED: SODIUM BICARBONATE 8.4 % INJ 50ML VIAL IV ONE (00:30)
[2020-03-22] MEDS ORDERED: InsuLIN REG 1unit/0.01ml Soln (100units/ml) IV ONE (00:30)
[2020-03-22] MEDS: AMIODARONE 450mg/250ml AE 250 ML IV SCH ×2 (02:11→13:00)
[2020-03-22] MEDS: NOREPINEPHRINE BITARTRATE 16 MG in SODIUM CHL 0.9% 250 ML IV SCH ×2 (02:11→15:42)
[2020-03-22] MEDS: InsuLIN REG 1unit/0.01ml Soln (100units/ml) SC SCH ×2 (04:41→12:00)
[2020-03-22 04:45] LABS: Hematocrit 34.8 % (41.0-53.0); Hemoglobin 11.5 g/dL (13.5-17.5); Mean Corpuscular Hemoglobin 29.5 pg (28.0-32.0); Mean Corpuscular Volume 89.3 fL (80.0-100.0); Platelet Count (auto) 181 10^3/uL (140-450); Red Cell Distribution Width 17.1 % (11.8-14.3); White Blood Cell 14.6 10^3/uL (4.4-10.8)
[2020-03-22 05:09] LABS: Basophils % (manual) 0 (0.0-2.0); Blast Cells 0; Eosinophils % (manual) 0 (0-7); Metamyelocytes % 0; Myelocytes % 0; Promyelocytes % 0; Reactive Lymphocytes 0
[2020-03-22 05:14] LABS: Albumin 2.5 g/dL (3.4-5.0); Calcium 9.3 mg/dL (8.5-10.1)
[2020-03-22 05:17] LABS: BUN/Creatinine Ratio 20.4; Bilirubin, Total 0.9 mg/dL (0.2-1.0); Total Protein 6.4 g/dL (6.4-8.2)
[2020-03-22 05:23] LABS: Potassium 5.8 mmol/L (3.5-5.1)
[2020-03-22 05:53] LABS: Band Neutrophils % (manual) 3; Lymphocytes % (manual) 4 (10.0-50.0); Monocytes % (manual) 7 (0-12)
[2020-03-22] MEDS: ACCU-CHEK COMFORT CURVE STRIP VI SCH ×2 (06:00→12:00)
[2020-03-22] MEDS ORDERED: AMIODARONE 450mg/250ml AE 250 ML IV SCH (07:45)
[2020-03-22] MEDS ORDERED: ETOMIDATE (2MG/ML) 20ML VIAL IV ONE (08:26)
[2020-03-22] MEDS ORDERED: SUCCINYLCHOLINE CHLORIDE 20 MG/ML 10ML VIAL IV ONE (08:27)
[2020-03-22] MEDS: MIDAZOLAM DRIP 50 mg/50mL 50 ML IV SCH (09:15)
[2020-03-22] MEDS ORDERED: PHENYLEPHRINE IV 250 ML IV ONE (09:22)
[2020-03-22] MEDS ORDERED: IPRATROPIUM BROM 0.5 MG/2.5ML INH SOL ONE (09:23)
[2020-03-22] MEDS ORDERED: LEVALBUTEROL HCL 1.25 MG/3 ML NEB ONE (09:23)
[2020-03-22] MEDS ORDERED: SODIUM ZIRCONIUM CYCL 10 GM PAK PO SCH (10:00)
[2020-03-22] MEDS: DexAMETHasone SOD PHOS 10MG/1ML VIAL INJ IV SCH (11:20)
[2020-03-22] MEDS: PANTOPRAZOLE 40 MG/10 ML VIAL INJ IV SCH (11:21)
[2020-03-22] MEDS: ASCORBIC ACID 500 MG TAB NG SCH (11:21)
[2020-03-22] MEDS: AZITHROMYCIN 500MG/ 250ML 250 ML IV SCH (11:21)
[2020-03-22] MEDS: ZINC SULFATE 220mg CAP or TAB NG SCH (11:21)
[2020-03-22] MEDS: CHOLECALCIFEROL (VITD3) 2,000 UNIT CAP PO SCH (11:22)
[2020-03-22] MEDS: HEPARIN SODIUM (PORCINE) 5000 UNITS/ML 1ML VIAL SC SCH (11:23)
[2020-03-22] MEDS: PHENYLEPHRINE IV 250 ML IV SCH ×2 (11:28→15:43)
[2020-03-22] MEDS ORDERED: SODIUM CHL 0.9% 1000 ML BAG XX ONE (12:00)
[2020-03-22] MEDS ORDERED: IPRATROPIUM BROM 0.5 MG/2.5ML INH SOL NEB SCH (14:00)
[2020-03-22] MEDS ORDERED: LEVALBUTEROL HCL 1.25 MG/3 ML NEB NEB SCH (14:00)
[2020-03-22] MEDS ORDERED: MORPHINE SULF INJ 2 MG/ML SYRINGE 1ML IV PRN (15:45)
[2020-03-22] MEDS ORDERED: LORazepam 2MG/ML-1ML VIAL IV PRN (15:45)
== END 2020-03-22 17:01 | DRG 870 ==
LOC: ER 14:20 → EDBD 14:20 → EDUNIT# 14:20 → TELE 14:21 → UNDOADMIN 14:21 → TELE 18:39 → DOU IN ICU 18:39 → ICU WEST 03-13 04:43 → DOU IN ICU 03-13 04:43 → UNDODISIN 03-23 05:33
PROVIDERS: ADMIT Specialist; ATTEND Specialist
PROC: 5A1955Z Respiratory Ventilation, Greater than 96 Consecutive Hours (ICD-10-PCS; principal; 2020-03-12)
PROC: 0BH17EZ Insertion of Endotracheal Airway into Trachea, Via Natural or Artificial Opening (ICD-10-PCS; 2020-03-12)
PROC: 02HV33Z Insertion of Infusion Device into Superior Vena Cava, Percutaneous Approach (ICD-10-PCS; 2020-03-12)
PROC: XW13325 Transfusion of Convalescent Plasma (Nonautologous) into Peripheral Vein, Percutaneous Approach, New Technology Group 5 (ICD-10-PCS; 2020-03-13)
PROC: 5A1D70Z Performance of Urinary Filtration, Intermittent, Less than 6 Hours Per Day (ICD-10-PCS; 2020-03-13)
PROC: 5A1D70Z Performance of Urinary Filtration, Intermittent, Less than 6 Hours Per Day (ICD-10-PCS; 2020-03-15)
PROC: 5A1D70Z Performance of Urinary Filtration, Intermittent, Less than 6 Hours Per Day (ICD-10-PCS; 2020-03-17)
PROC: 5A1D70Z Performance of Urinary Filtration, Intermittent, Less than 6 Hours Per Day (ICD-10-PCS; 2020-03-20)
PROC: 5A1935Z Respiratory Ventilation, Less than 24 Consecutive Hours (ICD-10-PCS; 2020-03-22)
PROC: 0BH17EZ Insertion of Endotracheal Airway into Trachea, Via Natural or Artificial Opening (ICD-10-PCS; 2020-03-22)
PROC: 5A1D70Z Performance of Urinary Filtration, Intermittent, Less than 6 Hours Per Day (ICD-10-PCS; 2020-03-22)
DX: A41.89 Other specified sepsis (principal); U07.1 COVID-19; R65.21 Severe sepsis with septic shock; N18.6 End stage renal disease; J12.89 Other viral pneumonia; G93.41 Metabolic encephalopathy; J15.1 Pneumonia due to Pseudomonas; J96.01 Acute respiratory failure with hypoxia; E87.1 Hypo-osmolality and hyponatremia; C34.90 Malignant neoplasm of unspecified part of unspecified bronchus or lung; G93.1 Anoxic brain damage, not elsewhere classified; I42.9 Cardiomyopathy, unspecified; I13.2 Hypertensive heart and chronic kidney disease with heart failure and with stage 5 chronic kidney disease, or end stage renal disease; I47.1 Supraventricular tachycardia; E87.5 Hyperkalemia; E87.8 Other disorders of electrolyte and fluid balance, not elsewhere classified; F32.9 Major depressive disorder, single episode, unspecified; C80.1 Malignant (primary) neoplasm, unspecified; D63.1 Anemia in chronic kidney disease; I48.91 Unspecified atrial fibrillation; Z66 Do not resuscitate; R62.7 Adult failure to thrive; E11.22 Type 2 diabetes mellitus with diabetic chronic kidney disease; E11.51 Type 2 diabetes mellitus with diabetic peripheral angiopathy without gangrene; E78.5 Hyperlipidemia, unspecified; G89.4 Chronic pain syndrome; I50.9 Heart failure, unspecified; Z51.5 Encounter for palliative care; K21.9 Gastro-esophageal reflux disease without esophagitis; F41.9 Anxiety disorder, unspecified; Z85.118 Personal history of other malignant neoplasm of bronchus and lung; Z99.2 Dependence on renal dialysis; Z79.51 Long term (current) use of inhaled steroids
CPT/HCPCS: 36415; 36600; 70450; 71045; 71250; 80048; 80053; 82728; 82805; 82962; 83605; 83615; 83735; 83880; 84132; 84484; 85007; 85025; 85027; 85379; 85610; 85730; 86141; 86706; 86850; 86900; 86901; 87040; 87070; 87077; 87081; 87186; 87205; 87340; 87426; 90935; 93005; 93971; 94002; 94003; 94640; A4618; C9113; G0378; J0330; J0610; J0696; J1100; J1642; J1815; J1956; J2250; J7060